=== PATIENT | male | born 1980 | race Caucasian/White ===

== ENCOUNTER 2019-07-04 07:21 | Emergency (ER) | payer SELFPAY | END 2019-07-04 07:31 | disposition left against medical advice (07) | LOC: ER 07:21 | DX: Z53.21 Procedure and treatment not carried out due to patient leaving prior to being seen by health care provider (principal) ==

== ENCOUNTER 2024-10-05 06:25 | Emergency (ER) | payer SELFPAY ==
[~2024-10-05] VITALS: Ht 172.7 cm; Wt 77.1 kg
[2024-10-05] MEDS ORDERED: FLUORESCEIN SODIUM 1 MG STRIP ONE (07:09)
[2024-10-05] MEDS: FLUORESCEIN SODIUM 1 MG STRIP OP ONE (07:11)
[2024-10-05] MEDS ORDERED: CIPR5DRO EACHEYE (07:17)
[2024-10-05 07:27] VITALS: BP 142/86; TEMP 98.3; O2SAT 99
== END 2024-10-05 07:27 | disposition home or self-care (01) ==
LOC: ER 06:30
DX: H10.9 Unspecified conjunctivitis (principal); F17.290 Nicotine dependence, other tobacco product, uncomplicated
CPT/HCPCS: A4606; A4663

== ENCOUNTER 2024-10-11 00:44 | Emergency (ER) | payer SELFPAY ==
[~2024-10-11 00:44] MED LIST: CIPR5DRO EACHEYE
== END 2024-10-11 02:00 | disposition left against medical advice (07) ==
LOC: ER 00:49
DX: M79.646 Pain in unspecified finger(s) (principal); Z53.21 Procedure and treatment not carried out due to patient leaving prior to being seen by health care provider